=== PATIENT | female | born 1985 | race Asian ===

== ENCOUNTER 2020-09-07 18:58 | Emergency (ER) | payer OTHER, SELFPAY ==
[2020-09-07 19:01] VITALS: BP 126/61; PULSE 69; RESP 14; TEMP 36.7; O2SAT 99
--- NOTE | 2020-09-07 19:04 | DI.RAD.S_ITS ---
PROCEDURE: XR CHEST 1V INDICATIONS: chest pain TECHNIQUE: One view of the chest was acquired. COMPARISON: None. FINDINGS: Surgical changes and devices: None. Lungs and pleura: Lungs are clear. No pleural effusions or pneumothorax. Mediastinum: Mediastinal contours appear normal. Heart size is normal. Bones and chest wall: No suspicious bony lesions. Overlying soft tissues appear unremarkable. IMPRESSION: No acute cardiopulmonary abnormality. Dictated by: Bryson Ross M.D. on 09/07/2020 at 20:55 Approved by: Bryson Ross M.D. on 09/07/2020 at 20:55
[2020-09-07 19:25] VITALS: PULSE 69; O2SAT 88
[2020-09-07 19:30] VITALS: BP 139/63; PULSE 66; O2SAT 95
[2020-09-07 19:30] LABS: Prothrombin Time 11.7 SECONDS (10.1-12.7)
[2020-09-07 19:32] LABS: Add Manual Diff / Slide Review NO; Basophils Absolute Auto 0 /uL (0-100); Basophils Percent Auto 0.6 % (0-2); Eosinophils Absolute Auto 100 /uL (0-450); Eosinophils Percent Auto 1.6 % (2-4); Hematocrit 42.1 % (36-46); Hemoglobin 13.9 g/dL (12.0-16.0); Lymphocytes Absolute Auto 1600 /uL (1100-4500); Lymphocytes Percent Auto 25.7 % (25-40); Mean Corpuscular HGB Conc 32.9 % (30-36); Mean Corpuscular Hemoglobin 30.4 PG (26-34); Mean Corpuscular Volume 92.3 fL (80-100); Monocytes Absolute Auto 300 /uL (0-900); Monocytes Percent Auto 5.4 % (3-14); Neutrophils Absolute Auto 4200 /uL (1500-7000); Neutrophils Percent Auto 66.7 % (50-75); Platelet Count 228 X10^3/uL (150-400); Red Blood Cell Count 4.56 X10^6/uL (4.0-5.2); White Blood Cell Count 6.4 X10^3/uL (4.5-11.0)
[2020-09-07 19:33] LABS: PTT Partial Thromboplastin Tim 36 SECONDS (26.4-36.2)
[2020-09-07 19:56] LABS: Alanine Aminotransferase 35 IU/L (<35); Albumin 4.5 g/dL (3.5-5.0); Albumin Globulin Ratio 1.5 (1.0-2.8); Alkaline Phosphatase 72 U/L (38-126); Aspartate Aminotransferase 42 IU/L (14-36); BUN Creatinine Ratio 17.8 (6-22); Bilirubin Total 0.9 mg/dL (0.2-1.3); Blood Urea Nitrogen 8 mg/dL (7-17); Calcium 9.4 mg/dL (8.4-10.2); Carbon Dioxide 28 mmol/L (22-32); Chloride 105 mmol/L (98-107); Creatine Kinase 38 U/L (30-135); Estimated Glomerular Filt Rate > 60.0 mL/min (>60); Globulin 3.1 g/dL (1.7-4.1); Glucose 97 mg/dL (70-100); HEMOLYSIS < 15 (0-50); Lipase 99 U/L (23-300); Magnesium 2.1 mg/dL (1.6-2.3); Sodium 140 mmol/L (137-145); Total Protein 7.6 g/dL (6.3-8.2)
[2020-09-07 20:00] VITALS: BP 107/61; PULSE 66; O2SAT 99
[2020-09-07 20:07] LABS: Troponin I < 0.012 ng/mL (0.01-0.034)
--- NOTE | 2020-09-07 20:27 | ED_ITS ---
HPI - Chest Pain General Chief Complaint: Chest Pain Stated Complaint: CHEST PAIN Time Seen by Provider: 09/07/20 20:27 Source: patient Mode of arrival: Ambulatory Limitations: no limitations History of Present Illness HPI narrative: Patient is a 35-year-old female who presents with chest heaviness ongoing for the last 1 week. She denies any shortness of breath palpitations dizziness or lightheadedness. She are COVID vaccine today and is having increasing pain. She denies any fever cough. She says she also has a mild headache which gets better with Tylenol. She has no nausea vomiting numbness tingling or weakness. She is not on any control no prior history of blood clots. No family history of coronary artery disease. MD complaint: chest pain Onset (ago): week(s) (1) Related Data Home Medications Medication Instructions Recorded Confirmed No Known Home Medications 09/07/20 09/07/20 Allergies Allergy/AdvReac Type Severity Reaction Status Date / Time No Known Drug Allergies Allergy Verified 09/07/20 19:04 Review of Systems Review of Systems Narrative: GENERAL: Denies chills, fatigue, malaise, fever, sweats, travel HEENT: Denies sinus pain, ear pain, sore throat, difficulty swallowing, neck pain RESPIRATORY: Denies dyspnea, cough, wheezing, hemoptysis, sputum. CARDIOVASCULAR: See HPI GASTROINTESTINAL: Denies nausea, vomiting, abdominal pain, diarrhea, constipation, melena. : Denies dysuria, frequency, incontinence, hematuria, urinary retention, flank pain. MUSCULOSKELETAL: Denies weakness, joint pain, or bony pain SKIN: No rash, no erythema, no pruritus NEUROLOGIC: Denies weakness, dizziness, headache, numbness, change in speech, confusion PSYCHIATRIC: No concerning psychosocial issues. 12 point review of systems is negative except for those stated above and HPI Patient History Social History Smoking Status: Never smoker Smoking Status: Never smoker alcohol intake frequency: 0-2 drinks per day Substance Use Type: does not use Exam Initial Vital Signs Initial Vital Signs: Vital Signs Temperature 98.0 F 09/07/20 19:01 Pulse Rate 69 09/07/20 19:01 Respiratory Rate 14 09/07/20 19:01 Blood Pressure 126/61 09/07/20 19:01 Pulse Oximetry 99 09/07/20 19:01 GENERAL: Well-appearing, well-nourished and in no acute distress. HEENT: Head atraumatic,EOMI, pupils reactive, face symmetric, moist mucous membranes, neck is supple no meningeal signs CARDIOVASCULAR: Regular rate and rhythm without murmurs, rubs or gallops. RESPIRATORY: Breath sounds equal bilaterally, no wheezes rales or rhonchi. ABDOMEN: Soft, nontender. Normoactive bowel sounds all 4 quadrants. No guarding or rebound. EXTREMITIES: Normal range of motion, no clubbing or edema. Neurovascularly intact NEUROLOGICAL: Alert and oriented x4.Normal gait and speech. Cranial nerves II through XII grossly intact. Good [id number], good [id number], strength equal bilaterally, no dysarthria or aphasia, sensation in tact to soft touch bilaterally, no visual changes, no facial droop SKIN: Warm, dry, no laceration, no petechiae, no rashes or lesions. Scores HEART Score Heart Score history: Slightly Suspicious Heart Score EKG: Normal Heart Score Age: < 45 years old Heart Score risk factors: No known risk factors Heart Score troponin: < or = to normal limit Heart Score Total: 0 PERC Score Age greater than or equal to 50 years: No Heart rate greater than or equal to 100 bpm: No Room Air O2 Sat less than 95%: No Unilateral leg swelling: No Recent trauma or surgery: No Hemoptysis: No Prior PE or DVT: No Hormone Use: No Total PERC Score: 0 Wells' Criteria for PE Clinical signs and symptoms of DVT: No PE is #1 Dx or equally likely: No Heart rate > 100: No Immobilization at least 3 days or surg in previous 4 weeks: No History of PE or DVT: No Hemoptysis: No Malignancy w/Treatment within 6 months or palliative: No Wells' PE Score total: 0 Course Orders Ordered: ED Orders 09/07/20 19:04 XR chest 1V Stat EKG-12 Lead Stat 09/07/20 19:15 Complete Blood Count AUTO DIFF Stat Comprehensive Metabolic Panel Stat Lipase Stat Magnesium Stat Partial Thromboplastin Time Stat Prothrombin Time INR Stat Troponin & CK Cardiac Panel Stat Vital Signs Vital signs: Vital Signs - 8 hr 09/07/20 19:01 09/07/20 19:25 09/07/20 19:30 Temperature 98.0 F Pulse Rate 69 69 66 Respiratory Rate 14 Blood Pressure 126/61 139/63 Pulse Oximetry 99 88 L 95 09/07/20 20:00 09/07/20 20:30 09/07/20 21:00 Temperature Pulse Rate 66 76 62 Respiratory Rate 15 Blood Pressure 107/61 112/56 L 102/57 L Pulse Oximetry 99 99 97 MDM - Chest Pain Lab Data Attestation: I reviewed the patient's lab results. Result diagrams: 09/07/20 19:15 09/07/20 19:15 Labs: Lab Results 09/07/20 09/07/20 09/07/20 Range/Units 19:15 19:15 19:15 WBC 6.4 (4.5-11.0) X10^3/uL RBC 4.56 (4.0-5.2) X10^6/uL Hgb 13.9 (12.0-16.0) g/dL Hct 42.1 (36-46) % MCV 92.3 (80-100) fL MCH 30.4 (26-34) PG MCHC 32.9 (30-36) % RDW 12.0 (11.6-14.8) % Plt Count 228 (150-400) X10^3/uL Neut % (Auto) 66.7 (50-75) % Lymph % (Auto) 25.7 (25-40) % [place] % (Auto) 5.4 (3-14) % Eos % (Auto) 1.6 L (2-4) % Baso % (Auto) 0.6 (0-2) % Neut # (Auto) 4200 (5354-1726) /uL Lymph # (Auto) 1600 (6621-3946) /uL [place] # (Auto) 300 (0-900) /uL Eos # (Auto) 100 (0-450) /uL Baso # (Auto) 0 (0-100) /uL PT 11.7 (10.1-12.7) SECONDS INR 1.0 (0.9-1.3) APTT 36 (26.4-36.2) SECONDS Sodium 140 (137-145) mmol/L Potassium 4.0 (3.4-5.1) mmol/L Chloride 105 (98-107) mmol/L Carbon Dioxide 28 (22-32) mmol/L BUN 8 (7-17) mg/dL Creatinine 0.45 L (0.52-1.04) mg/dL Estimated GFR > 60.0 (>60) mL/min BUN/Creatinine Ratio 17.8 (6-22) Glucose 97 (70-100) mg/dL Calcium 9.4 (8.4-10.2) mg/dL Magnesium 2.1 (1.6-2.3) mg/dL Total Bilirubin 0.9 (0.2-1.3) mg/dL AST 42 H (14-36) IU/L ALT 35 H (<35) IU/L Alkaline Phosphatase 72 (38-126) U/L Total Creatine Kinase 38 (30-135) U/L CK-MB (CK-2) TNP CK-MB (CK-2) Rel Index TNP Troponin I < 0.012 (0.01-0.034) ng/mL Total Protein 7.6 (6.3-8.2) g/dL Albumin 4.5 (3.5-5.0) g/dL Globulin 3.1 (1.7-4.1) g/dL Albumin/Globulin Ratio 1.5 (1.0-2.8) Lipase 99 (23-300) U/L Imaging Data Chest x-ray: Radiologist's Impression: PROCEDURE: XR CHEST 1V INDICATIONS: chest pain TECHNIQUE: One view of the chest was acquired. COMPARISON: None. FINDINGS: Surgical changes and devices: None. Lungs and pleura: Lungs are clear. No pleural effusions or pneumothorax. Mediastinum: Mediastinal contours appear normal. Heart size is normal. Bones and chest wall: No suspicious bony lesions. Overlying soft tissues appear unremarkable. IMPRESSION: No acute cardiopulmonary abnormality. Dictated by: Bryson Ross M.D. on 09/07/2020 at 20:55 Approved by: Bryson Ross M.D. on 09/07/2020 at 20:55 ECG Data Attestation: I personally reviewed and interpreted this ECG as follows: Prior ECG tracings: not available for review Interpretation: Normal sinus rhythm rate 70 p.r. interval 160 QRS [address] changes or T-wave inversions MDM Narrative Medical decision making narrative: Patient has low risk heart score chest heaviness ongoing for more than 1 week with a negative troponin today. There is definitely some level anxiety instantly felt better when I told her the results of all overall reassuring. Low risk for PE and really having no signs or symptoms of PE. At this time I recommend she follow-up with her primary care provider. Discharge Plan Departure Patient Disposition: Home Clinical Impression: Atypical chest pain, Headache Instructions: DI for Atypical Chest Pain, DI for Headache Activity Restrictions/Additional Instructions: *You have been diagnosed with atypical chest pain *What to do: At this time you may require further outpatient testing for your chest pain but you do not need to stay in hospital for it. Please follow-up with her primary care provider *Continue to take medications as directed Tylenol 1000 mg every 8 hours if needed for [id number] pain Motrin 600 mg every 6 hours if needed for [id number] pain *Follow up with your primary care provider in 2-3 days *Return to ER if you should have increasing chest pain, shortness of breath, worsening headache, nausea vomiting weakness numbness or tingling or any new, worsening or concerning symptoms Prescriptions: No Action No Known Home Medications RF: 0
[2020-09-07 20:30] VITALS: BP 112/56; PULSE 76; O2SAT 99
[2020-09-07 21:00] VITALS: BP 102/57; PULSE 62; RESP 15; O2SAT 97
== END 2020-09-07 21:35 | disposition home or self-care (01) ==
PROVIDERS: Emergency Provider Emergency Medicine
DX: R07.89 Other chest pain (principal); R51.9 Headache, unspecified
CPT/HCPCS: 36415; 71045; 80053; 82550; 83690; 83735; 84484; 85025; 85610; 85730; 93005; 99284